=== PATIENT | female | born 1945 | race Caucasian/White ===

== ENCOUNTER 2022-10-07 09:44 | Day surgery (SDC) | payer MEDICARE, SELFPAY ==
--- NOTE | 2022-10-04 13:05 | HO.ANESPROP2 ---
HPI - Anesthesia Eval Consult details Narrative: 76yo F for Colonoscopy PMFSH Past Medical History Medical History Amputated toe of right foot Breast cancer, right Broken wrist Chronic UTI HTN (hypertension) Osteoporosis Pneumonia Surgical History Surgical History H/O colonoscopy H/O esophagogastroduodenoscopy History of carpal tunnel surgery History of lumpectomy of left breast History of total abdominal hysterectomy Hx of laparoscopic gastric banding Social History Social History Patient Tobacco Use Status: Former Tobacco user Are you DNR?: No Advance Directives: No Advance Directives Information Provided: Yes Recently lost weight without trying: No Nutrition Risks: No Nutritional Risk Meds Allergies Allergy/AdvReac Type Severity Reaction Status Date / Time No Known Allergies Allergy Unverified 03/23/20 15:11 [No Known Allergies*] Home Medications Medication Instructions Recorded Confirmed Last Taken Type Calcium + D 10/04/22 10/04/22 10/06/22 History Centrum Silver 10/04/22 10/06/22 History ascorbic acid (vitamin C) 1,000 mg 1,000 mg PO DAILY 10/04/22 10/04/22 10/06/22 History tablet (Vitamin C) losartan 25 mg tablet 25 mg PO DAILY 10/04/22 10/04/22 10/07/22 History omeprazole 20 mg capsule,delayed 20 mg PO DAILY 10/04/22 10/04/22 10/06/22 History release Exam Exam Date and Time: October 04, 2022 1305 Assessment and Plan Assessment Anesthesia Assessment: Chart Reviewed
[2022-10-07 07:16] VITALS: BMI 26.6
[2022-10-07 09:53] VITALS: BP 146/83; PULSE 73; RESP 20; TEMP 36.6; O2SAT 98
[2022-10-07] MEDS: Lactated Ringers 1,000 ML 100 ML IVCONT (10:12)
--- NOTE | 2022-10-07 10:13 | HO.ANESPROP2 ---
FORMERLY [facility] Past Medical History Medical History Amputated toe of right foot Breast cancer, right Broken wrist Chronic UTI HTN (hypertension) Osteoporosis Pneumonia Surgical History Surgical History H/O colonoscopy H/O esophagogastroduodenoscopy History of carpal tunnel surgery History of lumpectomy of left breast History of total abdominal hysterectomy Hx of laparoscopic gastric banding History of Problems with Anesthesia: No Social History Social History Patient Tobacco Use Status: Former Tobacco user Are you DNR?: No Advance Directives: No Advance Directives Information Provided: Yes Recently lost weight without trying: No Nutrition Risks: No Nutritional Risk Meds Allergies Allergy/AdvReac Type Severity Reaction Status Date / Time No Known Allergies Allergy Unverified 03/23/20 15:11 [No Known Allergies*] Active Medications: Current Medications Lactated Ringer's (Lr) 1,000 mls @ 100 mls/hr IVCONT .Q10H KAMILAH Last Admin: 10/07/22 10:12 Dose: 100 mls/hr Sodium Biphosphate/Sodium Phosphate (Sodium Phosphate,Tehama-Dibasic 133 Ml Enema) 133 ml MA ONCE PRN PRN Reason: Poor Colonoscopy Prep Results Home Medications Medication Instructions Recorded Confirmed Last Taken Type Calcium + D 10/04/22 10/04/22 10/06/22 History Centrum Silver 10/04/22 10/06/22 History ascorbic acid (vitamin C) 1,000 mg 1,000 mg PO DAILY 10/04/22 10/04/22 10/06/22 History tablet (Vitamin C) losartan 25 mg tablet 25 mg PO DAILY 10/04/22 10/04/22 10/07/22 History omeprazole 20 mg capsule,delayed 20 mg PO DAILY 10/04/22 10/04/22 10/06/22 History release Exam Exam Date and Time: October 07, 2022 1013 Height,Weight and Vital Signs: Height 5 ft 5.75 in Weight 74.389 kg Last Vital Signs Temp 98 F 10/07/22 09:53 Pulse 73 10/07/22 09:53 Resp 20 10/07/22 09:53 BP 146/83 H 10/07/22 09:53 Pulse Ox 98 10/07/22 09:53 O2 Del Method Room Air 10/07/22 09:53 Airway Mallampati Class: II TM Dist: >3cm Neck ROM: Full Loose/Missing/Broken Teeth: No Heart: RRR Lungs: CTA Assessment and Plan Final Anesthetic Review History of Problems with Anesthesia: No NPO: Yes ASA Class: II Final Preanesthetic Review: Meds/Allgs Chart Reviewed, Consent Obtained/Reviewed and Anes Risks/Benef Reviewed Patient Risk: Low Procedure Risk: Low Anesthetic Plan Anesthetic Plan: MAC: Disposition: Standard PACU
[2022-10-07 11:44] VITALS: BP 91/48; PULSE 74; RESP 16; TEMP 36.3; O2SAT 95
--- NOTE | 2022-10-07 11:51 | PM.OP ---
Brief Operative Note Date of Service: 10/07/22 Pre-op diagnosis: Screening Post-op diagnosis: other (Polyp) Procedure: Colonoscopy to the cecum and TI with hot snare polypectomy x 1 with placement of 2 Resolution clips Surgeon: Anjel Ruiz Anesthesia: MAC Was an Refrigeration Service Technician used for this Procedure?: No Estimated blood loss (mL): 0 Pathology: other (A. Polyp at 50cm) Condition: stable Disposition: PACU
[2022-10-07 11:59] VITALS: BP 152/74; PULSE 78; RESP 16; TEMP 36.3; O2SAT 100
--- NOTE | 2022-10-07 13:13 | OP_ITS ---
DATE OF SERVICE: 10/07/2022 SURGEON: Anjel Ruiz MD INDICATIONS: The patient presents for evaluation of colorectal cancer screening. Full consent has been obtained from here for this, including risks of bleeding and perforation. PREOPERATIVE DIAGNOSIS: POSTOPERATIVE DIAGNOSIS: PROCEDURE PERFORMED: Colonoscopy to the cecum and terminal ileum with hot snare polypectomy and placement of two Resolution clips. ESTIMATED BLOOD LOSS: COMPLICATIONS: ANESTHESIA: Monitored anesthesia care ASSISTANTS: SPECIMENS: PREOPERATIVE DIAGNOSES: Colorectal cancer screening, personal history of colon polyps, and family history of colon cancer. POSTOPERATIVE DIAGNOSES: Colorectal cancer screening, personal history of colon polyps, family history of colon cancer, colon polyp, diverticulosis and internal hemorrhoids. DESCRIPTION OF PROCEDURE: The patient was placed in the left lateral decubitus position. The digital rectal exam revealed no abnormalities. The Olympus video pediatric colonoscope was entered into the rectum and advanced easily to the cecum. Once in the cecum, I did identify a normal-appearing cecal pouch with appendiceal orifice and a normal-appearing ileocecal valve. The terminal ileum was cannulated and appeared normal. The scope was withdrawn back in the colon. The entire cecum and ileocecal valve appeared normal. The scope was slowly withdrawn assessing all mucosal surfaces carefully. Preparation was excellent. At 50 cm there was a somewhat lobulated approximately 12 mm polyp which was relatively flat and was removed in piecemeal fashion. Pieces were recovered for pathology. Post-polypectomy, there did not appear to be any residual polyp nor bleeding. Two Resolution clips were deployed with good deployment and good hemostasis. I did not visualize any other polyps, colitis, nor angiodysplasia. There was a mild amount of sigmoid diverticulosis. In the rectum, the scope ws retroflexed visualizing internal hemorrhoids, but no other pathology. The rectal mucosa appeared normal. The scope was straightened and withdrawn from the patient. She tolerated the procedure well and was returned to the recovery area in stable condition. IMPRESSION: 1. Colon polyps. 2. Diverticulosis. 3. Internal hemorrhoids. PLAN: The results of the biopsies will be checked. She was advised not to use any aspirin or NSAIDS for at least 1 week. Given today's findings and her age, I do not think, she would need any further screening colonoscopies. She will see me on a p.r.n. basis. MD ELÍAS Strickland/[place] / [id number] MTDD
== END 2022-10-07 12:45 | disposition home or self-care (01) ==
PROVIDERS: PCP Family Medicine; Visit Provider Internal Medicine
PROC: 0DJD8ZZ Inspection of Lower Intestinal Tract, Via Natural or Artificial Opening Endoscopic (ICD-10-PCS; CPT 45378; principal; 2022-10-07 11:40)
DX: Z12.11 Encounter for screening for malignant neoplasm of colon (principal); Z86.010 Personal history of colon polyps; Z80.0 Family history of malignant neoplasm of digestive organs; K63.5 Polyp of colon; K57.30 Diverticulosis of large intestine without perforation or abscess without bleeding; K64.8 Other hemorrhoids; K21.00 Gastro-esophageal reflux disease with esophagitis, without bleeding; M81.0 Age-related osteoporosis without current pathological fracture; I10 Essential (primary) hypertension; C50.911 Malignant neoplasm of unspecified site of right female breast; Z79.810 Long term (current) use of selective estrogen receptor modulators (SERMs); Z79.899 Other long term (current) drug therapy; Z87.891 Personal history of nicotine dependence; Z98.84 Bariatric surgery status
CPT/HCPCS: 45385; 88305

== ENCOUNTER → 2022-10-28 10:38 | Outpatient (BNVA) | payer MEDICARE, SELFPAY | PROVIDERS: PCP Family Medicine; Visit Provider Urology | DX: Z13.9 Encounter for screening, unspecified (principal); N39.0 Urinary tract infection, site not specified; R35.0 Frequency of micturition | CPT/HCPCS: 51798; 99202 ==

== ENCOUNTER 2022-11-26 09:38 | Outpatient (REF) | payer MEDICARE, SELFPAY ==
--- NOTE | ~2022-11-26 | US_ITS ---
EXAMINATION: US RETROPERITONEAL COMPLETE (RENAL) CLINICAL INFORMATION: Urinary tract infection, site not specified. COMPARISON: None available. TECHNIQUE: Real-time imaging of the kidneys and bladder. FINDINGS: RIGHT KIDNEY: 9.1 x 3.9 x 4.5 cm (SAG x AP x TRV). The kidney is normal in size, contour, and echogenicity. Renal cortical thickness is normal. No renal calculi or hydronephrosis. Benign-appearing 2.4 cm renal cyst, no imaging follow-up recommended. 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 LEFT KIDNEY: 9.2 x 4.1 x 4.5 cm (SAG x AP x TRV). The kidney is normal in size, contour, and echogenicity. Renal cortical thickness is normal. No renal calculi or hydronephrosis. Benign-appearing 0.9 cm renal cyst, no imaging follow-up recommended. Punctate echogenic focus in the left lower pole without shadowing or twinkle artifact may reflect a vascular reflector or possibly a mural calcification associated with a tiny likely benign cyst, no follow-up imaging recommended. BLADDER: Well distended and normal. Bilateral ureteral jets are demonstrated. Prevoid bladder volume is 335 mL. Postvoid bladder volume is 24.5 mL. US/US retroperitoneal comp IMPRESSION: 1. No hydronephrosis or nephrolithiasis. 2. 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
== END 2022-11-26 09:39 | disposition home or self-care (01) ==
LOC: HO.US 09:38
PROVIDERS: Visit Provider Urology
DX: N39.0 Urinary tract infection, site not specified (principal); R39.11 Hesitancy of micturition
CPT/HCPCS: 76770

== ENCOUNTER 2022-12-06 14:09 | Outpatient (AMB) | payer MEDICARE, SELFPAY ==
--- NOTE | 2022-12-06 14:59 | MHC.OFFVIS ---
Intake Intake Visit Reasons: cysto, US(?)/labs Intake Note: Pt presents to the office today for a Cystoscopy. Urinalysis done. Allergies No Known Allergies [No Known Allergies*] Allergy (Verified 12/06/22 15:00) Medication List - Last Reconciled 12/06/22 by Ana Neal MD ascorbic acid (vitamin C) (Vitamin C) 1,000 mg PO DAILY [Calcium + D ] [Centrum Silver ] losartan 25 mg PO DAILY nitrofurantoin monohyd/m-cryst 100 mg (Macrobid) 100 mg PO BID 10 days omeprazole 20 mg PO DAILY HPI HPI Comments History of Present Illness Details Gabrielle is a 76-year-old female who presents to the office for scheduled cystoscopy procedure 12/06/22-- Cystoscopy not done today as the urine was nitrite positive. Denies dysuria. The patient has history of breast cancer in the right breast,s/p lumpectomy with radiations 7 years ago. She has completed tamoxifen course. The patient has history of prolapse bladder repair in the past. Has surgical history of hysterectomy. Evaluation today: Blood: negative, leukocytes: 15 Miguel/uL, nitrite: positive. 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 Plan: Urine for culture was ordered. Urine for cytology was ordered. Macrobid 100 mg BID for 10 days was ordered. Cystoscopy to be rescheduled. [facility] Medical History Amputated toe of right foot Breast cancer, right Broken wrist Chronic UTI HTN (hypertension) Osteoporosis Pneumonia Surgical History H/O colonoscopy H/O esophagogastroduodenoscopy History of carpal tunnel surgery History of lumpectomy of left breast History of total abdominal hysterectomy Hx of laparoscopic gastric banding Social History Patient Tobacco Use Status: Former Tobacco user Review of Systems Const All systems reviewed & are unremarkable except as noted in HPI and below and unobtainable due to endotracheal tube Reports no additional complaints Eyes Reports no additional complaints ENT Reports no additional complaints Card Denies dyspnea Resp Denies cough and Denies dyspnea GI Reports no additional complaints Reports no additional complaints Musc Reports no additional complaints Skin/Breast Denies rash and Denies unusual bruising Neuro Reports no additional complaints Psych Reports no additional complaints Endo Reports no additional complaints Isacc/Lymph Reports no additional complaints Aller/Immun Reports no additional complaints Physical Exam Const General: cooperative, healthy appearing and no acute distress Orientation/consciousness: patient oriented x3 HEENT Head: Yes normal to inspection, Yes normocephalic and Yes atraumatic Eyes Conjunctivae: conjunctivae normal Neck Neck: Yes normal visual inspection and Yes trachea midline Chest Chest palpation & inspection: normal inspection of the chest Resp Effort & Inspection: normal respiratory effort Cardio Rate: regular rate GI Inspection: Yes normal to inspection Palpation (GI): Soft to palpation Skin General skin exam: no rashes or lesions noted Neuro General: patient oriented x3 Extrem General: No edema Psych Appearance: grossly normal Results AMB Urinalysis, Automated UA Leukoctes 15 Miguel/uL Last Edit by Cheryle Jaramillo MA on 12/06/22 15:02 UA Nitrite Positive Last Edit by Cheryle Jaramillo MA on 12/06/22 15:02 UA Urobilinogen 0.2 mg/dL Last Edit by Cheryle Jaramillo MA on 12/06/22 15:02 UA Protein 0 mg/dL Last Edit by Cheryle Jaramillo MA on 12/06/22 15:02 UA pH 6.0 Last Edit by Cheryle Jaramillo MA on 12/06/22 15:02 UA Blood 0 Reed/uL Last Edit by Cheryle Jaramillo MA on 12/06/22 15:02 UA Specific [place] 1.020 Last Edit by Cheryle Jaramillo MA on 12/06/22 15:02 UA Ketone Positive Last Edit by Cheryle Jaramillo MA on 12/06/22 15:02 UA Bilirubin 0 mg/dL Last Edit by Cheryle Jaramillo MA on 12/06/22 15:02 UA Glucose 0 mg/dL Last Edit by Cheryle Jaramlilo MA on 12/06/22 15:02 Results Reviewed Results Reviewed: Laboratory Last Values Urine pH (Auto) 6.0 12/06/22 15:01 Specific [place] (Auto) 1.020 12/06/22 15:01 Urine Protein (Auto) 0 mg/dL 12/06/22 15:01 Glucose (UA)(Auto) 0 mg/dL 12/06/22 15:01 Urine Ketones (Auto) Positive 12/06/22 15:01 Urine Blood (Auto) 0 Reed/uL 12/06/22 15:01 Urine Nitrite (Auto) Positive 12/06/22 15:01 Urine Bilirubin (Auto) 0 mg/dL 12/06/22 15:01 Urine Urobilinogen (Auto) 0.2 mg/dL 12/06/22 15:01 Leukocyte Esterase (Auto) 15 Miguel/uL 12/06/22 15:01 Date of Service: 11/26/22 EXAMINATION: US RETROPERITONEAL COMPLETE (RENAL) CLINICAL INFORMATION: Urinary tract infection, site not specified. COMPARISON: None available. TECHNIQUE: Real-time imaging of the kidneys and bladder. FINDINGS: RIGHT KIDNEY: 9.1 x 3.9 x 4.5 cm (SAG x AP x TRV). The kidney is normal in size, contour, and echogenicity. Renal cortical thickness is normal. No renal calculi or hydronephrosis. Benign-appearing 2.4 cm renal cyst, no imaging follow-up recommended. 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 LEFT KIDNEY: 9.2 x 4.1 x 4.5 cm (SAG x AP x TRV). The kidney is normal in size, contour, and echogenicity. Renal cortical thickness is normal. No renal calculi or hydronephrosis. Benign-appearing 0.9 cm renal cyst, no imaging follow-up recommended. Punctate echogenic focus in the left lower pole without shadowing or twinkle artifact may reflect a vascular reflector or possibly a mural calcification associated with a tiny likely benign cyst, no follow-up imaging recommended. BLADDER: Well distended and normal. Bilateral ureteral jets are demonstrated. Prevoid bladder volume is 335 mL. Postvoid bladder volume is 24.5 mL. IMPRESSION: 1. No hydronephrosis or nephrolithiasis. 2. 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 Assessment & Plan Assessment & Plan (1) Urinary hesitancy: Code(s): R39.11 - Hesitancy of micturition (2) Frequent UTI: Code(s): N39.0 - Urinary tract infection, site not specified (3) Urinary frequency: Code(s): R35.0 - Frequency of micturition Plan Urine for culture was ordered. Urine for cytology was ordered. Macrobid 100 mg BID for 10 days was ordered. Cystoscopy to be rescheduled. Orders: Orders Urine Culture 12/06/22 N39.0 - Urinary tract infection, site not specified Urine Cytology 12/06/22 N39.0 - Urinary tract infection, site not specified AMB Urinalysis Automated 12/06/22 Z13.9 - Encounter for screening, unspecified Medications: New nitrofurantoin monohyd/m-cryst 100 mg (Macrobid) must administer with a meal/food 100 mg PO BID 20 caps 0RF 10 days Coding Level of Care Code Est Pt Level 4 (85591) Diagnoses Urinary hesitancy R39.11 Frequent UTI N39.0 Urinary frequency R35.0
== END 2022-12-06 15:22 | disposition home or self-care (01) ==
LOC: HO.HUSH 14:09
PROVIDERS: PCP Family Medicine; Visit Provider Urology
DX: R39.11 Hesitancy of micturition (principal); N39.0 Urinary tract infection, site not specified; R35.0 Frequency of micturition
CPT/HCPCS: 99214

== ENCOUNTER 2022-12-06 14:09 | Outpatient (REF) | payer MEDICARE, SELFPAY ==
[2022-12-07 07:26] LABS: Urine Cytology See Pathology rpt
== END 2022-12-06 14:10 | disposition home or self-care (01) ==
LOC: HO.LAB 14:09
PROVIDERS: PCP Family Medicine; Visit Provider Urology
DX: R39.11 Hesitancy of micturition (principal); N39.0 Urinary tract infection, site not specified; R35.0 Frequency of micturition
CPT/HCPCS: 87086; 87088; 87186; 88112; 99212

== ENCOUNTER 2023-01-23 13:59 | Outpatient (AMB) | payer MEDICARE, SELFPAY ==
--- NOTE | 2023-01-23 11:16 | A.OFFVIS_ITS ---
Intake Intake Visit Reasons: cysto Intake Note: Patient presents today for a CYSTOSCOPY Procedure: Meds: Macrobid Allergies to Antibiotic: No Known Allergies Blood Thinner: None Urinalysis Test: Cleared for Cysto Disposible Uro-G Cystoscope Cannula: Lot: [id number] Exp: 12/20/2024 Puppet Master Required: No Accompanied by: Self / Same As Patient Allergies No Known Allergies [No Known Allergies*] Allergy (Verified 01/23/23 15:09) HPI HPI Comments History of Present Illness Details Gabrielle is a 77-year-old female who presents today to the office for office cystoscopy. LV--12/06/22-- Cystoscopy not done today as the urine was nitrite positive. Denies dysuria. The patient has history of breast cancer in the right breast,s/p lumpectomy with radiations 7 years ago. She has completed tamoxifen course.? The patient has history of prolapse bladder repair in the past. Has surgical history of hysterectomy. Evaluation today: Blood: negative, leukocytes: 15 Miguel/uL, nitrite: positive. 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 01/23/2023-- The patient is a 77-year-old female who presents to the clinic today for office cystoscopy. She was last seen in the office on 12/06/22. At that time, urine was nitrite p ositive and cystoscopy was not done. Urine culture that was sent on 12/06/22 revealed Klebsiella pneumonia. She is here today to have the cystoscopy. She reports occasional urinary accidents when she goes to the bathroom urgently. She also brought a sample box of uqora [id number] supplement to help prevent UTI. I reviewed with her that I am familiar with the supplement and I am okay with her using it p.r.n. Cystoscopy findings: No suspicious bladder lesions. Mild bladder wall thickening. Plan: Prescribed estrogen cream in regards to her vaginal atrophy. Follow up in 3 months. FORMERLY [facility], [facility]–1983 Medical History Amputated toe of right foot Breast cancer, right Broken wrist Chronic UTI HTN (hypertension) Osteoporosis Pneumonia Surgical History H/O colonoscopy H/O esophagogastroduodenoscopy History of carpal tunnel surgery History of lumpectomy of left breast History of total abdominal hysterectomy Hx of laparoscopic gastric banding Social History Patient Tobacco Use Status: Former Tobacco user Review of Systems Const All systems reviewed & are unremarkable except as noted in HPI and below Reports no additional complaints Eyes Reports no additional complaints ENT Reports no additional complaints Card Denies dyspnea Resp Denies cough and Denies dyspnea GI Reports no additional complaints Reports no additional complaints Musc Reports no additional complaints Skin/Breast Denies rash and Denies unusual bruising Neuro Reports no additional complaints Psych Reports no additional complaints Endo Reports no additional complaints Isacc/Lymph Reports no additional complaints Aller/Immun Reports no additional complaints Physical Exam Const General: cooperative, healthy appearing and no acute distress Orientation/consciousness: patient oriented x3 HEENT Head: Yes normal to inspection, Yes normocephalic and Yes atraumatic Eyes Conjunctivae: conjunctivae normal Neck Neck: Yes normal visual inspection and Yes trachea midline Chest Chest palpation & inspection: normal inspection of the chest Resp Effort & Inspection: normal respiratory effort Cardio Rate: regular rate GI Inspection: Yes normal to inspection Skin General skin exam: no rashes or lesions noted Neuro General: patient oriented x3 Psych Appearance: grossly normal Office Procedures Cystoscopy Consent Discussed risk and benefit or proposed procedure with the patient. Information consent for procedure given to the patient. Discussed technical aspects, risks, benefits and alternatives in full. Addressed all of the patient's questions and concerns regarding the procedure. The patient demonstrated knowledge and understanding. They wish to proceed with this procedure. Preparation The patient was prepped in the usual manner. A painter and body mechanic apprentice was present and in the room. Genitalia was prepped with betadine solution in a sterile manner. Lidocaine Jelly 2% was placed into the urethra and 16Fr flexible Olympus cystoscope was inserted into the meatus after adequate lubrication. Procedure Time out per protocol performed. Bladder Inspection Bladder Inspection: The bladder was inspected in its entirety with utilization retroflexion displaying: Tumor(s): None Trabeculation: mild/mod Mucosal Erthema: mild Orifices: normal shape and position Urethra: normal Cystoscopy findings: no suspicious bladder lesions visualized [id number] Procedure code (CPT) selection complete Office Meds lidocaine HCl 2 % mucosal jelly in applicator Performing Provider: Ana Neal MD Performing Location: [facility] [place] [facility] Documented (not given) by: Ana Neal MD on 01/23/23 15:39 Dose Route Admin Location Dispensed Lot Number Expiration Date NDC [employer] 10 mL intra-urethral mL nitrofurantoin monohydrate/macrocrystals 100 mg capsule Performing Provider: Ana Neal MD Performing Location: [facility] [place] [facility] Documented (not given) by: Ana Neal MD on 01/23/23 15:39 Dose Route Admin Location Dispensed Lot Number Expiration Date NDC [employer] 100 mg PO cap naproxen 500 mg tablet Performing Provider: Ana Neal MD Performing Location: [facility] [place] [facility] Documented (not given) by: Ana Neal MD on 01/23/23 15:39 Dose Route Admin Location Dispensed Lot Number Expiration Date NDC [employer] 500 mg PO tab Results AMB Urinalysis, Automated UA Leukoctes 15 Miguel/uL Last Edit by SHANE Santizo on 01/23/23 15:08 UA Nitrite Negative Last Edit by SHANE Santizo on 01/23/23 15:08 UA Urobilinogen 0 mg/dL Last Edit by SHANE Santizo on 01/23/23 15:08 UA Protein 0 mg/dL Last Edit by SHANE Santizo on 01/23/23 15:08 UA pH 6.5 Last Edit by SHANE Santizo on 01/23/23 15:08 UA Blood 0 Reed/uL Last Edit by SHANE Santizo on 01/23/23 15:08 UA Specific [place] 1.015 Last Edit by Hermila Vann RMA on 01/23/23 15: 08 UA Ketone Negative Last Edit by BAILEY SantizoA on 01/23/23 15:08 UA Bilirubin 0 mg/dL Last Edit by Hermila Vann RMA on 01/23/23 15:08 UA Glucose 0 mg/dL Last Edit by Hermila Vann A on 01/23/23 15:08 Results Reviewed Results Reviewed: Laboratory Last Values Urine pH (Auto) 6.5 01/23/23 15:07 Specific [place] (Auto) 1.015 01/23/23 15:07 Urine Protein (Auto) 0 mg/dL 01/23/23 15:07 Glucose (UA)(Auto) 0 mg/dL 01/23/23 15:07 Urine Ketones (Auto) Negative 01/23/23 15:07 Urine Blood (Auto) 0 Reed/uL 01/23/23 15:07 Urine Nitrite (Auto) Negative 01/23/23 15:07 Urine Bilirubin (Auto) 0 mg/dL 01/23/23 15:07 Urine Urobilinogen (Auto) 0 mg/dL 01/23/23 15:07 Leukocyte Esterase (Auto) 15 Miguel/uL 01/23/23 15:07 Urine Culture Final 12/09/22 Organism 1 Klebsiella pneumoniae Quant > 100,000 cfu/mL Kleb pneum M.I.C. RX --------- --- Ampicillin 16 R Ceftriaxone <=0.25 S Gentamicin <=1 S Levofloxacin <=0.12 S Nitrofurantoin <=16 S Trimethoprim/Sulfamethoxazole <=20 S Assessment & Plan Assessment & Plan (1) Urinary hesitancy: Code(s): R39.11 - Hesitancy of micturition (2) Frequent UTI: Code(s): N39.0 - Urinary tract infection, site not specified (3) Urinary frequency: Code(s): R35.0 - Frequency of micturition Plan Prescribed estrogen cream in regards to her vaginal atrophy. Follow up in 3 months. Orders: Orders AMB Urinalysis Automated 01/23/23 Z13.9 - Encounter for screening, unspecified AMB Cystoscopy 01/23/23 N39.0 - Urinary tract infection, site not specified Medications: New nitrofurantoin monohyd/m-cryst 100 mg 100 mg PO ONCE 1 cap 0RF N39.0 - Urinary tract infection, site not specified estradiol 0.01%(0.1mg/gram) (Estrace) 1 g vaginally use a pea sized amount on fingertip to vaginal area and urethral at bedtime; Do not use applicator, apply with fingertip 42.5 grams 2RF lidocaine HCl 2% 10 mL intra-urethral ONCE 10 mL 0RF N39.0 - Urinary tract infection, site not specified naproxen 500 mg PO ONCE 1 tab 0RF N39.0 - Urinary tract infection, site not specified Patient Instructions: The patient had an opportunity to ask questions regarding treatment plan. All questions were answered. Imaging, Laboratory studies and physical exam results were discussed and reviewed in detail. No major barriers to understanding were identified. The patient expressed understanding and agreement with the above treatment plan. The patient is aware they should contact our office by phone for worsening of their current condition or the appearance of new symptoms. Compliance is encouraged with any medications and followup testing that is ordered. It is a privilege to be allowed the opportunity to participate in the urologic care of your patient. If you have any questions or concerns regarding treatment for the above conditions please do not hesitate to contact me. The office telephone contact is [phone]. This note is constructed in part using voice recognition software. While every effort has been made to ensure accuracy glass washer errors may have been included. Yours sincerely, Ana Neal MD Coding Level of Care Code Est Pt Level 3 (06103) Diagnoses Urinary hesitancy R39.11 Frequent UTI N39.0 Urinary frequency R35.0 CPT Codes Cystoscopy - CPT: 24585-[id number] ([id number])
== END 2023-01-23 15:28 | disposition home or self-care (01) ==
PROVIDERS: PCP Family Medicine; Visit Provider Urology
DX: R39.11 Hesitancy of micturition (principal); N39.0 Urinary tract infection, site not specified; R35.0 Frequency of micturition
CPT/HCPCS: 52000

== ENCOUNTER → 2023-01-23 13:59 | Outpatient (BNVA) | payer MEDICARE, SELFPAY | PROVIDERS: PCP Family Medicine; Visit Provider Urology | DX: R39.11 Hesitancy of micturition (principal); R35.0 Frequency of micturition; N39.0 Urinary tract infection, site not specified | CPT/HCPCS: 52000 ==